=== PATIENT | male | born 1935 | race Caucasian/White ===

== ENCOUNTER 2020-03-18 15:11 | Inpatient (IN) ==
[2020-03-18] MEDS ORDERED: ACETAMINOPHEN 325 MG TABLET PO PRN (17:39)
[2020-03-18] MEDS ORDERED: ONDANSETRON 4 MG/2 ML VIAL IV PRN (17:39)
[2020-03-18] MEDS ORDERED: SODIUM CHLORIDE 0.9% 1,000 ML IV PRN (17:44)
[2020-03-18 17:58] LABS: ABG Base Excess -6.4 MMOL/L (-2.5-2.5); ABG HCO3 19.3 MMOL/L (20-26); ABG Oxygen Saturation 99.8 % (95-100); ABG PCO2 46.1 MM HG (35-48); ABG PH 7.264 (7.35-7.45); ABG TCO2 18.4 MMOL/L (23-27); Allen Test Positive; Pt O2 Delivery Device Ventilator
[2020-03-18] MEDS: NOREPINEPHRINE 8 MG in SODIUM CHLORIDE 0.9% 242 ML IV SCH (18:28)
[2020-03-18] MEDS: PANTOPRAZOLE 40 MG VIAL IV SCH (18:39)
[2020-03-18] MEDS: SUCRALFATE 1 GM/10 ML UDCUP NG SCH (18:43)
[2020-03-18] MEDS: LACTATED RINGERS 1,000 ML IV SCH (18:48)
[2020-03-18] MEDS ORDERED: METOPROLOL TARTRATE 5 MG/5 ML VIAL IV ONE (18:50)
[2020-03-18 19:10] LABS: Basophils % 0.2 % (0.0-0.8); Eosinophils % 0.1 % (0.00-10.9); Hematocrit 40.3 VOL% (42.0-52.0); Hemoglobin 13.3 GM/DL (14.0-18.0); Immature Granulocytes % 0.3 %; Immature Granulocytes Absolute 0.05 #; Lymphocytes # 1.6 10*3/uL (1.4-4.0); Lymphocytes % 10.6 % (21.2-54.2); Mean Corpuscular Volume 91.6 FL (87-102); Mean Platelet Volume 11.2 FL (9.6-12.0); Monocytes % 4.3 % (1.7-12.7); Neutrophils % 84.5 % (38.7-73.9); Platelet Count 202 T/CUMM (130-400); Red Cell Distribution Width 15.9 % (9.3-17.3); White Blood Count 15.4 T/CUMM (4-12)
[2020-03-18] MEDS: METOPROLOL TARTRATE 5 MG/5 ML VIAL IV SCH (19:16)
[2020-03-18 19:20] LABS: INR 1.1; PT Patient Result 11.6 SECS (9.8-11.9)
[2020-03-18 19:29] LABS: Albumin 2.8 G/DL (3.4-5.0); Bilirubin,Total 1.1 MG/DL (0.2-1.0); Calcium 8.3 MG/DL (8.5-10.1); Osmolality,Calculated 303.6 MOS/KG (273-304); Total Protein 6.6 G/DL (6.4-8.3)
[2020-03-19] MEDS: SUCRALFATE 1 GM/10 ML UDCUP NG SCH ×4 (00:59→18:49)
[2020-03-19] MEDS: METOPROLOL TARTRATE 5 MG/5 ML VIAL IV SCH ×5 (01:01→20:34)
[2020-03-19 03:58] LABS: Basophils % 0.3 % (0.0-0.8); Eosinophils % 0.1 % (0.00-10.9); Hematocrit 36.5 VOL% (42.0-52.0); Hemoglobin 12.3 GM/DL (14.0-18.0); Immature Granulocytes % 0.3 %; Immature Granulocytes Absolute 0.03 #; Lymphocytes # 1.8 10*3/uL (1.4-4.0); Lymphocytes % 15.7 % (21.2-54.2); Mean Corpuscular HGB Conc 33.7 GM/DL (32-36); Mean Corpuscular Volume 90.1 FL (87-102); Monocytes % 4.8 % (1.7-12.7); Neutrophils % 78.8 % (38.7-73.9); Platelet Count 176 T/CUMM (130-400); Red Blood Count 4.05 MC/CUMM (3.8-5.5); Red Cell Distribution Width 16.9 % (9.3-17.3); White Blood Count 11.7 T/CUMM (4-12)
[2020-03-19 04:04] LABS: INR 1.1; PT Patient Result 11.7 SECS (9.8-11.9)
[2020-03-19 04:19] LABS: Albumin 2.2 G/DL (3.4-5.0); Bilirubin,Total 1.1 MG/DL (0.2-1.0); Calcium 8.2 MG/DL (8.5-10.1); Osmolality,Calculated 305.7 MOS/KG (273-304); Total Protein 5.7 G/DL (6.4-8.3)
[2020-03-19] MEDS: LACTATED RINGERS 1,000 ML IV SCH (04:48)
[2020-03-19 04:52] LABS: ABG Base Excess -9.4 MMOL/L (-2.5-2.5); ABG Oxygen Saturation 97.7 % (95-100); ABG PCO2 28.8 MM HG (35-48); ABG PH 7.335 (7.35-7.45); ABG TCO2 15.9 MMOL/L (23-27); Allen Test Positive; Pt O2 Delivery Device Ventilator
[2020-03-19] MEDS ORDERED: LACTATED RINGERS 1,000 ML IV ONE ×2 (05:19→06:19)
[2020-03-19 06:54] LABS: Band Neutrophils 6 % (0-10); Lymphocytes 14 % (20-55); Segmented Neutrophils 76 % (50-85); Total Cells Counted 100
[2020-03-19 06:55] LABS: Platelet Estimate Normal; Polychromasia Slight
[2020-03-19 06:56] LABS: Microcytosis Slight
[2020-03-19] MEDS: PANTOPRAZOLE 40 MG VIAL IV SCH ×2 (07:21→18:51)
[2020-03-19] MEDS ORDERED: MAGNESIUM SULF RIDER 2 GM in PREMIX 1 EACH IV ONE (09:01)
[2020-03-19] MEDS ORDERED: SODIUM CHLORIDE 0.9% 1,000 ML IV ONE (09:45)
[2020-03-19] MEDS: SODIUM BICARB INJ 100 MEQ in DEXTROSE 5% 1,000 ML IV SCH ×2 (09:45→20:41)
[2020-03-19] MEDS: MORPHINE 4 MG/1 ML VIAL IV PRN ×2 (09:45→20:59)
[2020-03-19] MEDS ORDERED: MIDAZOLAM 2 MG/2 ML VIAL ONE (11:02)
[2020-03-19] MEDS ORDERED: MIDAZOLAM 2 MG/2 ML VIAL IV ONE (11:05)
[2020-03-19] MEDS ORDERED: VECURONIUM 10 MG VIAL IV ONE (11:07)
[2020-03-19] MEDS ORDERED: ROCURONIUM 100 MG/10 ML VIAL IV ONE (11:10)
[2020-03-19] MEDS: PIPERACILLIN/TAZOBACTAM 3,375 MG in SODIUM CHLORIDE 0.9% 100 ML IV SCH ×2 (12:35→20:34)
[2020-03-19] MEDS: ALBUTEROL/IPRATROPIUM 3 ML NEB RESP TX SCH ×3 (15:42→23:08)
[2020-03-19] MEDS ORDERED: METOPROLOL TARTRATE 5 MG/5 ML VIAL IV SCH ×2 (18:51)
[2020-03-19] MEDS: NOREPINEPHRINE 8 MG in SODIUM CHLORIDE 0.9% 242 ML IV SCH (22:32)
[2020-03-20] MEDS: SUCRALFATE 1 GM/10 ML UDCUP NG SCH ×5 (00:41→23:10)
[2020-03-20] MEDS: METOPROLOL TARTRATE 5 MG/5 ML VIAL IV SCH ×5 (01:09→23:05)
[2020-03-20] MEDS: MORPHINE 4 MG/1 ML VIAL IV PRN ×2 (02:24→15:55)
[2020-03-20] MEDS: ALBUTEROL/IPRATROPIUM 3 ML NEB RESP TX SCH ×5 (03:05→19:15)
[2020-03-20] MEDS: PIPERACILLIN/TAZOBACTAM 3,375 MG in SODIUM CHLORIDE 0.9% 100 ML IV SCH ×3 (03:46→20:17)
[2020-03-20 03:51] LABS: Basophils % 0.3 % (0.0-0.8); Eosinophils % 0.4 % (0.00-10.9); Hematocrit 27.6 VOL% (42.0-52.0); Hemoglobin 9.2 GM/DL (14.0-18.0); Immature Granulocytes % 1.5 %; Immature Granulocytes Absolute 0.17 #; Lymphocytes # 1.1 10*3/uL (1.4-4.0); Lymphocytes % 9.8 % (21.2-54.2); Mean Corpuscular HGB Conc 33.3 GM/DL (32-36); Mean Corpuscular Volume 90.5 FL (87-102); Mean Platelet Volume 11.5 FL (9.6-12.0); Monocytes % 2.7 % (1.7-12.7); Neutrophils % 85.3 % (38.7-73.9); Platelet Count 142 T/CUMM (130-400); Red Blood Count 3.05 MC/CUMM (3.8-5.5); Red Cell Distribution Width 16.9 % (9.3-17.3); White Blood Count 11.4 T/CUMM (4-12)
[2020-03-20 04:08] LABS: Albumin 1.7 G/DL (3.4-5.0); Bilirubin,Total 0.8 MG/DL (0.2-1.0); Calcium 7.9 MG/DL (8.5-10.1); Osmolality,Calculated 298.6 MOS/KG (273-304); Total Protein 4.7 G/DL (6.4-8.3)
[2020-03-20 04:11] LABS: INR 1.2; PT Patient Result 12.8 SECS (9.8-11.9)
[2020-03-20 04:22] LABS: ABG Base Excess -0.9 MMOL/L (-2.5-2.5); ABG Oxygen Saturation 95.1 % (95-100); ABG PCO2 35.1 MM HG (35-48); ABG PH 7.434 (7.35-7.45); ABG PO2 74.4 MM HG (80-95); ABG TCO2 24.1 MMOL/L (23-27); Allen Test Positive; Pt O2 Delivery Device Ventilator
[2020-03-20 04:26] LABS: Band Neutrophils 16 % (0-10); Lymphocytes 7 % (20-55); Myelocytes 3 %; Segmented Neutrophils 74 % (50-85); Total Cells Counted 100
[2020-03-20 04:27] LABS: Hypochromasia Slight; Microcytosis Slight; Platelet Estimate Adequate
[2020-03-20] MEDS: PANTOPRAZOLE 40 MG VIAL IV SCH ×2 (05:53→17:55)
[2020-03-20] MEDS ORDERED: NOREPINEPHRINE 4 MG/4 ML VIAL IV ONE (07:19)
[2020-03-20] MEDS: NOREPINEPHRINE 8 MG in SODIUM CHLORIDE 0.9% 242 ML IV SCH (07:35)
[2020-03-20] MEDS: SODIUM BICARB INJ 100 MEQ in DEXTROSE 5% 1,000 ML IV SCH ×2 (08:25→19:27)
[2020-03-20] MEDS ORDERED: LACTATED RINGERS 1,000 ML IV ONE (09:30)
[2020-03-20 16:49] LABS: Basophils # 0.1 10*3/uL (0.0-0.2); Basophils % 0.5 % (0.0-0.8); Eosinophils # 0.1 10*3/uL (0.0-0.87); Eosinophils % 0.5 % (0.00-10.9); Hematocrit 25.6 VOL% (42.0-52.0); Hemoglobin 8.6 GM/DL (14.0-18.0); Immature Granulocytes % 0.5 %; Immature Granulocytes Absolute 0.07 #; Lymphocytes % 6.6 % (21.2-54.2); Mean Corpuscular HGB Conc 33.6 GM/DL (32-36); Mean Corpuscular Volume 90.5 FL (87-102); Mean Platelet Volume 11.4 FL (9.6-12.0); Monocytes % 2.7 % (1.7-12.7); Neutrophils % 89.2 % (38.7-73.9); Platelet Count 148 T/CUMM (130-400); Red Blood Count 2.83 MC/CUMM (3.8-5.5); Red Cell Distribution Width 16.8 % (9.3-17.3); White Blood Count 15.1 T/CUMM (4-12)
[2020-03-20 17:42] LABS: Band Neutrophils 7 % (0-10); Eosinophils 1 % (0-10); Hypochromasia 1+; Lymphocytes 5 % (20-55); Metamyelocytes 2 %; Segmented Neutrophils 83 % (50-85); Total Cells Counted 100
[2020-03-20 17:43] LABS: Platelet Estimate Normal
[2020-03-20] MEDS: LEVOFLOXACIN INJ 750 MG in PREMIX 1 EACH IV SCH (22:52)
[2020-03-21] MEDS: ALBUTEROL/IPRATROPIUM 3 ML NEB RESP TX SCH ×7 (00:56→23:58)
[2020-03-21 03:45] LABS: Basophils # 0.1 10*3/uL (0.0-0.2); Basophils % 0.6 % (0.0-0.8); Eosinophils # 0.2 10*3/uL (0.0-0.87); Eosinophils % 0.9 % (0.00-10.9); Hematocrit 25.9 VOL% (42.0-52.0); Hemoglobin 8.5 GM/DL (14.0-18.0); Immature Granulocytes % 0.6 %; Lymphocytes # 1.2 10*3/uL (1.4-4.0); Lymphocytes % 7.4 % (21.2-54.2); Mean Corpuscular HGB Conc 32.8 GM/DL (32-36); Mean Corpuscular Volume 91.5 FL (87-102); Mean Platelet Volume 11.9 FL (9.6-12.0); Monocytes % 3.6 % (1.7-12.7); Neutrophils % 86.9 % (38.7-73.9); Platelet Count 159 T/CUMM (130-400); Red Blood Count 2.83 MC/CUMM (3.8-5.5); Red Cell Distribution Width 16.5 % (9.3-17.3); White Blood Count 16.5 T/CUMM (4-12)
[2020-03-21 03:52] LABS: INR 1.2; PT Patient Result 12.5 SECS (9.8-11.9)
[2020-03-21 03:58] LABS: Albumin 1.4 G/DL (3.4-5.0); Calcium 7.9 MG/DL (8.5-10.1); Osmolality,Calculated 293.7 MOS/KG (273-304); Total Protein 4.7 G/DL (6.4-8.3)
[2020-03-21 03:59] LABS: Prealbumin 5.4 MG/DL (20-40)
[2020-03-21 04:32] LABS: Band Neutrophils 8 % (0-10); Eosinophils 1 % (0-10); Hypochromasia Slight; Lymphocytes 8 % (20-55); Platelet Estimate Adequate; Segmented Neutrophils 81 % (50-85); Total Cells Counted 100
[2020-03-21] MEDS: NOREPINEPHRINE 8 MG in SODIUM CHLORIDE 0.9% 242 ML IV SCH ×2 (04:43→18:00)
[2020-03-21] MEDS: PIPERACILLIN/TAZOBACTAM 3,375 MG in SODIUM CHLORIDE 0.9% 100 ML IV SCH ×3 (04:50→19:59)
[2020-03-21 05:02] LABS: ABG Base Excess 4.3 MMOL/L (-2.5-2.5); ABG HCO3 26.8 MMOL/L (20-26); ABG Oxygen Saturation 96.8 % (95-100); ABG PCO2 32.4 MM HG (35-48); ABG PH 7.536 (7.35-7.45); ABG PO2 84.2 MM HG (80-95); ABG TCO2 27.8 MMOL/L (23-27)
[2020-03-21 05:03] LABS: Allen Test Positive; Pt O2 Delivery Device Ventilator
[2020-03-21] MEDS: METOPROLOL TARTRATE 5 MG/5 ML VIAL IV SCH ×3 (06:41→18:05)
[2020-03-21] MEDS: PANTOPRAZOLE 40 MG VIAL IV SCH ×2 (06:41→18:05)
[2020-03-21] MEDS: SUCRALFATE 1 GM/10 ML UDCUP NG SCH ×3 (06:41→18:05)
[2020-03-21] MEDS: SODIUM BICARB INJ 100 MEQ in DEXTROSE 5% 1,000 ML IV SCH ×2 (07:15→18:10)
[2020-03-21] MEDS: POTASSIUM CHLORIDE 20 MEQ/15 ML UDCUP PER TUBE SCH ×3 (12:10→18:05)
[2020-03-22] MEDS: METOPROLOL TARTRATE 5 MG/5 ML VIAL IV SCH ×4 (00:45→17:05)
[2020-03-22] MEDS: SUCRALFATE 1 GM/10 ML UDCUP NG SCH ×5 (00:50→23:30)
[2020-03-22] MEDS: ALBUTEROL/IPRATROPIUM 3 ML NEB RESP TX SCH ×6 (03:28→23:30)
[2020-03-22 04:44] LABS: Basophils % 0.3 % (0.0-0.8); Eosinophils # 0.3 10*3/uL (0.0-0.87); Eosinophils % 2.2 % (0.00-10.9); Hematocrit 23.8 VOL% (42.0-52.0); Hemoglobin 8.1 GM/DL (14.0-18.0); Immature Granulocytes % 4.2 %; Immature Granulocytes Absolute 0.58 #; Lymphocytes # 1.3 10*3/uL (1.4-4.0); Lymphocytes % 9.6 % (21.2-54.2); Mean Corpuscular Volume 89.1 FL (87-102); Mean Platelet Volume 11.2 FL (9.6-12.0); Monocytes % 5.5 % (1.7-12.7); Neutrophils % 78.2 % (38.7-73.9); Platelet Count 133 T/CUMM (130-400); Red Blood Count 2.67 MC/CUMM (3.8-5.5); Red Cell Distribution Width 15.9 % (9.3-17.3); White Blood Count 13.8 T/CUMM (4-12)
[2020-03-22 04:54] LABS: Calcium 7.3 MG/DL (8.5-10.1); Osmolality,Calculated 288.1 MOS/KG (273-304)
[2020-03-22] MEDS: PIPERACILLIN/TAZOBACTAM 3,375 MG in SODIUM CHLORIDE 0.9% 100 ML IV SCH ×3 (04:55→22:13)
[2020-03-22 04:57] LABS: ABG HCO3 30.8 MMOL/L (20-26); ABG Oxygen Saturation 96.4 % (95-100); ABG PCO2 37.4 MM HG (35-48); ABG PH 7.517 (7.35-7.45); ABG PO2 70.2 MM HG (80-95); ABG TCO2 27.7 MMOL/L (23-27); Allen Test Positive; Pt O2 Delivery Device Ventilator
[2020-03-22 05:03] LABS: Band Neutrophils 3 % (0-10); Eosinophils 2 % (0-10); Hypochromasia 1+; Lymphocytes 7 % (20-55); Platelet Estimate Normal; Segmented Neutrophils 84 % (50-85); Total Cells Counted 100
[2020-03-22] MEDS: PANTOPRAZOLE 40 MG VIAL IV SCH ×2 (05:37→17:05)
[2020-03-22] MEDS: POTASSIUM CHLORIDE RIDER 20 MEQ in PREMIX 1 EACH IV PRN (05:38)
[2020-03-22] MEDS: SODIUM BICARB INJ 100 MEQ in DEXTROSE 5% 1,000 ML IV SCH (06:17)
[2020-03-22] MEDS: POTASSIUM CHLORIDE RIDER 10 MEQ in PREMIX 1 EACH IV PRN (09:30)
[2020-03-22] MEDS: POTASSIUM CHLORIDE 20 MEQ/15 ML UDCUP PER TUBE SCH ×5 (10:49→22:35)
[2020-03-22] MEDS: INSULIN REGULAR 100 UNIT/ML SUBCUT SCH ×3 (13:04→23:29)
[2020-03-22] MEDS: NOREPINEPHRINE 8 MG in SODIUM CHLORIDE 0.9% 242 ML IV SCH (17:07)
[2020-03-22] MEDS ORDERED: SODIUM CHLORIDE 0.9% 100 ML IV ONE (22:11)
[2020-03-22] MEDS: LEVOFLOXACIN INJ 750 MG in PREMIX 1 EACH IV SCH (22:32)
[2020-03-22] MEDS: MORPHINE 4 MG/1 ML VIAL IV PRN (23:41)
[2020-03-23] MEDS: METOPROLOL TARTRATE 5 MG/5 ML VIAL IV SCH ×4 (01:01→18:17)
[2020-03-23] MEDS: ALBUTEROL/IPRATROPIUM 3 ML NEB RESP TX SCH ×6 (03:05→23:22)
[2020-03-23 04:49] LABS: ABG Base Excess 4.2 MMOL/L (-2.5-2.5); ABG HCO3 28.2 MMOL/L (20-26); ABG Oxygen Saturation 99.1 % (95-100); ABG PCO2 36.6 MM HG (35-48); ABG PH 7.487 (7.35-7.45); ABG TCO2 25.3 MMOL/L (23-27); Allen Test Positive; Pt O2 Delivery Device Ventilator
[2020-03-23 04:54] LABS: Basophils % 0.2 % (0.0-0.8); Eosinophils # 0.5 10*3/uL (0.0-0.87); Eosinophils % 3.7 % (0.00-10.9); Hematocrit 23.9 VOL% (42.0-52.0); Hemoglobin 7.9 GM/DL (14.0-18.0); Immature Granulocytes % 2.2 %; Immature Granulocytes Absolute 0.32 #; Lymphocytes # 1.1 10*3/uL (1.4-4.0); Lymphocytes % 7.7 % (21.2-54.2); Mean Corpuscular HGB Conc 33.1 GM/DL (32-36); Mean Corpuscular Volume 91.2 FL (87-102); Mean Platelet Volume 11.4 FL (9.6-12.0); Monocytes % 8.9 % (1.7-12.7); Neutrophils % 77.3 % (38.7-73.9); Platelet Count 155 T/CUMM (130-400); Red Blood Count 2.62 MC/CUMM (3.8-5.5); Red Cell Distribution Width 15.7 % (9.3-17.3); White Blood Count 14.8 T/CUMM (4-12)
[2020-03-23 05:14] LABS: Band Neutrophils 2 % (0-10); Eosinophils 5 % (0-10); Lymphocytes 6 % (20-55); Segmented Neutrophils 83 % (50-85); Total Cells Counted 100
[2020-03-23 05:15] LABS: Hypochromasia 1+; Microcytosis Slight; Platelet Estimate Adequate
[2020-03-23 05:26] LABS: Calcium 7.7 MG/DL (8.5-10.1); Osmolality,Calculated 289.8 MOS/KG (273-304)
[2020-03-23] MEDS: SUCRALFATE 1 GM/10 ML UDCUP NG SCH ×3 (06:15→18:16)
[2020-03-23] MEDS: PIPERACILLIN/TAZOBACTAM 3,375 MG in SODIUM CHLORIDE 0.9% 100 ML IV SCH ×3 (06:15→20:53)
[2020-03-23] MEDS: INSULIN REGULAR 100 UNIT/ML SUBCUT SCH ×3 (06:15→18:19)
[2020-03-23] MEDS: PANTOPRAZOLE 40 MG VIAL IV SCH ×2 (06:16→18:17)
[2020-03-23] MEDS: methylPREDNISolone SOD SUC 40 MG/1 ML VIAL IV SCH ×2 (08:45→15:29)
[2020-03-23] MEDS ORDERED: MAGNESIUM SULF RIDER 2 GM in PREMIX 1 EACH IV ONE (08:48)
[2020-03-23] MEDS: POTASSIUM CHLORIDE 20 MEQ/15 ML UDCUP PER TUBE SCH ×3 (09:00→18:16)
[2020-03-23] MEDS: POTASSIUM CHLORIDE RIDER 20 MEQ in PREMIX 1 EACH IV PRN (10:04)
[2020-03-23] MEDS: POTASSIUM CHLORIDE RIDER 10 MEQ in PREMIX 1 EACH IV PRN (11:46)
[2020-03-23] MEDS: NOREPINEPHRINE 8 MG in SODIUM CHLORIDE 0.9% 242 ML IV SCH (19:08)
[2020-03-23] MEDS: MORPHINE 4 MG/1 ML VIAL IV PRN (20:20)
[2020-03-24] MEDS: INSULIN REGULAR 100 UNIT/ML SUBCUT SCH ×5 (00:27→23:56)
[2020-03-24] MEDS: methylPREDNISolone SOD SUC 40 MG/1 ML VIAL IV SCH ×4 (00:27→23:57)
[2020-03-24] MEDS: SUCRALFATE 1 GM/10 ML UDCUP NG SCH ×5 (00:27→23:57)
[2020-03-24] MEDS: METOPROLOL TARTRATE 5 MG/5 ML VIAL IV SCH ×5 (01:00→23:57)
[2020-03-24] MEDS: ALBUTEROL/IPRATROPIUM 3 ML NEB RESP TX SCH ×6 (03:06→23:20)
[2020-03-24 04:03] LABS: Allen Test Positive; Pt O2 Delivery Device Ventilator
[2020-03-24 04:04] LABS: ABG Base Excess -0.3 MMOL/L (-2.5-2.5); ABG HCO3 24.1 MMOL/L (20-26); ABG Oxygen Saturation 91.6 % (95-100); ABG PCO2 37.9 MM HG (35-48); ABG PH 7.411 (7.35-7.45); ABG PO2 59.6 MM HG (80-95); ABG TCO2 22.2 MMOL/L (23-27)
[2020-03-24] MEDS: PIPERACILLIN/TAZOBACTAM 3,375 MG in SODIUM CHLORIDE 0.9% 100 ML IV SCH ×3 (04:20→20:30)
[2020-03-24] MEDS: MORPHINE 4 MG/1 ML VIAL IV PRN ×2 (04:35→23:00)
[2020-03-24 05:21] LABS: Basophils % 0.1 % (0.0-0.8); Immature Granulocytes % 1.9 %; Immature Granulocytes Absolute 0.24 #; Lymphocytes # 0.7 10*3/uL (1.4-4.0); Lymphocytes % 5.7 % (21.2-54.2); Mean Corpuscular HGB Conc 32.1 GM/DL (32-36); Mean Corpuscular Volume 95.7 FL (87-102); Mean Platelet Volume 12.1 FL (9.6-12.0); Monocytes % 4.1 % (1.7-12.7); NRBC # 0.02 10*3/uL; Neutrophils % 88.2 % (38.7-73.9); Platelet Count 153 T/CUMM (130-400); Red Blood Count 1.63 MC/CUMM (3.8-5.5); Red Cell Distribution Width 15.9 % (9.3-17.3); White Blood Count 12.5 T/CUMM (4-12)
[2020-03-24 05:23] LABS: Hematocrit 15.6 VOL% (42.0-52.0)
[2020-03-24] MEDS ORDERED: SODIUM CHLORIDE 0.9% 1,000 ML IV PRN (05:30)
[2020-03-24 05:34] LABS: Calcium 7.9 MG/DL (8.5-10.1); Osmolality,Calculated 297.8 MOS/KG (273-304)
[2020-03-24 05:49] LABS: Band Neutrophils 3 % (0-10); Lymphocytes 7 % (20-55); Segmented Neutrophils 85 % (50-85); Total Cells Counted 100
[2020-03-24 05:50] LABS: Ovalocytes 1+; Platelet Estimate Adequate
[2020-03-24 05:51] LABS: Acanthocytes Few
[2020-03-24] MEDS: PANTOPRAZOLE 40 MG VIAL IV SCH ×2 (06:02→17:57)
[2020-03-24] MEDS: NOREPINEPHRINE 8 MG in SODIUM CHLORIDE 0.9% 242 ML IV SCH (17:58)
[2020-03-24 20:00] LABS: Hematocrit 36.8 VOL% (42.0-52.0); Hemoglobin 12.1 GM/DL (14.0-18.0)
[2020-03-24] MEDS: LEVOFLOXACIN INJ 750 MG in PREMIX 1 EACH IV SCH (20:49)
[2020-03-25] MEDS: ALBUTEROL/IPRATROPIUM 3 ML NEB RESP TX SCH ×6 (03:14→23:13)
[2020-03-25 03:55] LABS: ABG Base Excess 0.4 MMOL/L (-2.5-2.5); ABG HCO3 24.8 MMOL/L (20-26); ABG Oxygen Saturation 98.1 % (95-100); ABG PCO2 39.5 MM HG (35-48); ABG PH 7.409 (7.35-7.45); ABG PO2 97.1 MM HG (80-95); ABG TCO2 22.7 MMOL/L (23-27); Allen Test Positive; Pt O2 Delivery Device Ventilator
[2020-03-25 04:52] LABS: Basophils # 0.1 10*3/uL (0.0-0.2); Basophils % 0.2 % (0.0-0.8); Hematocrit 32.7 VOL% (42.0-52.0); Immature Granulocytes % 2.4 %; Immature Granulocytes Absolute 0.52 #; Lymphocytes % 4.6 % (21.2-54.2); Mean Corpuscular HGB Conc 33.6 GM/DL (32-36); Mean Corpuscular Volume 88.6 FL (87-102); Mean Platelet Volume 11.6 FL (9.6-12.0); Monocytes % 4.2 % (1.7-12.7); NRBC # 0.03 10*3/uL; Neutrophils % 88.6 % (38.7-73.9); Platelet Count 236 T/CUMM (130-400); Red Blood Count 3.69 MC/CUMM (3.8-5.5); Red Cell Distribution Width 15.7 % (9.3-17.3); White Blood Count 21.5 T/CUMM (4-12)
[2020-03-25 05:29] LABS: Band Neutrophils 2 % (0-10); Lymphocytes 3 % (20-55); Osmolality,Calculated 301.7 MOS/KG (273-304); Segmented Neutrophils 93 % (50-85); Total Cells Counted 100
[2020-03-25 05:30] LABS: Microcytosis 1+; Polychromasia Slight
[2020-03-25] MEDS: PIPERACILLIN/TAZOBACTAM 3,375 MG in SODIUM CHLORIDE 0.9% 100 ML IV SCH ×3 (06:00→20:20)
[2020-03-25] MEDS: SUCRALFATE 1 GM/10 ML UDCUP NG SCH ×4 (06:37→23:56)
[2020-03-25] MEDS: PANTOPRAZOLE 40 MG VIAL IV SCH ×2 (06:37→17:58)
[2020-03-25] MEDS: INSULIN REGULAR 100 UNIT/ML SUBCUT SCH ×3 (06:37→17:58)
[2020-03-25] MEDS: methylPREDNISolone SOD SUC 40 MG/1 ML VIAL IV SCH ×3 (06:38→23:57)
[2020-03-25] MEDS: METOPROLOL TARTRATE 5 MG/5 ML VIAL IV SCH ×4 (06:38→23:57)
[2020-03-25] MEDS: fentaNYL INJ 1,250 MCG in SODIUM CHLORIDE 0.9% 225 ML IV PRN (15:07)
[2020-03-25] MEDS: NOREPINEPHRINE 8 MG in SODIUM CHLORIDE 0.9% 242 ML IV SCH (17:32)
[2020-03-25] MEDS: METOCLOPRAMIDE 10 MG/2 ML VIAL IV SCH ×2 (18:02→23:56)
[2020-03-26] MEDS: INSULIN REGULAR 100 UNIT/ML SUBCUT SCH ×4 (00:18→17:11)
[2020-03-26] MEDS: ALBUTEROL/IPRATROPIUM 3 ML NEB RESP TX SCH ×6 (02:28→23:24)
[2020-03-26 03:02] LABS: ABG Base Excess -0.4 MMOL/L (-2.5-2.5); ABG HCO3 23.7 MMOL/L (20-26); ABG Oxygen Saturation 95.9 % (95-100); ABG PCO2 36.9 MM HG (35-48); ABG PH 7.426 (7.35-7.45); ABG PO2 80.2 MM HG (80-95); ABG TCO2 24.9 MMOL/L (23-27)
[2020-03-26 03:03] LABS: Allen Test Positive; Pt O2 Delivery Device Ventilator
[2020-03-26 03:55] LABS: Basophils # 0.1 10*3/uL (0.0-0.2); Basophils % 0.2 % (0.0-0.8); Hematocrit 37.2 VOL% (42.0-52.0); Hemoglobin 11.8 GM/DL (14.0-18.0); Immature Granulocytes % 2.5 %; Immature Granulocytes Absolute 0.58 #; Lymphocytes # 1.1 10*3/uL (1.4-4.0); Lymphocytes % 4.8 % (21.2-54.2); Mean Corpuscular HGB Conc 31.7 GM/DL (32-36); Mean Corpuscular Volume 93.5 FL (87-102); Mean Platelet Volume 10.7 FL (9.6-12.0); Monocytes % 4.4 % (1.7-12.7); NRBC # 0.02 10*3/uL; Neutrophils % 88.1 % (38.7-73.9); Platelet Count 293 T/CUMM (130-400); Red Blood Count 3.98 MC/CUMM (3.8-5.5); Red Cell Distribution Width 16.4 % (9.3-17.3)
[2020-03-26 04:07] LABS: Osmolality,Calculated 301.7 MOS/KG (273-304)
[2020-03-26] MEDS: PIPERACILLIN/TAZOBACTAM 3,375 MG in SODIUM CHLORIDE 0.9% 100 ML IV SCH ×2 (04:15→11:48)
[2020-03-26] MEDS: METOPROLOL TARTRATE 5 MG/5 ML VIAL IV SCH ×4 (06:30→23:55)
[2020-03-26] MEDS: fentaNYL INJ 1,250 MCG in SODIUM CHLORIDE 0.9% 225 ML IV PRN (06:40)
[2020-03-26 06:41] LABS: Band Neutrophils 1 % (0-10); Lymphocytes 5 % (20-55); Segmented Neutrophils 90 % (50-85); Total Cells Counted 100
[2020-03-26 06:44] LABS: Hypochromasia 1+; Platelet Estimate Normal
[2020-03-26] MEDS: SUCRALFATE 1 GM/10 ML UDCUP NG SCH ×4 (07:03→23:56)
[2020-03-26] MEDS: PANTOPRAZOLE 40 MG VIAL IV SCH ×2 (07:04→17:11)
[2020-03-26] MEDS: METOCLOPRAMIDE 10 MG/2 ML VIAL IV SCH ×4 (07:05→23:55)
[2020-03-26] MEDS: methylPREDNISolone SOD SUC 40 MG/1 ML VIAL IV SCH ×3 (07:30→23:55)
[2020-03-26] MEDS: cefTRIAXone 1,000 MG in SYRINGE 1 EACH IV SCH (17:26)
[2020-03-26] MEDS: NOREPINEPHRINE 8 MG in SODIUM CHLORIDE 0.9% 242 ML IV SCH (17:26)
[2020-03-26] MEDS: LEVOFLOXACIN INJ 750 MG in PREMIX 1 EACH IV SCH (21:46)
[2020-03-27] MEDS: INSULIN REGULAR 100 UNIT/ML SUBCUT SCH ×4 (00:02→18:02)
[2020-03-27] MEDS: ALBUTEROL/IPRATROPIUM 3 ML NEB RESP TX SCH ×6 (03:40→23:37)
[2020-03-27 03:44] LABS: Calcium 8.2 MG/DL (8.5-10.1); Osmolality,Calculated 302.6 MOS/KG (273-304)
[2020-03-27 04:33] LABS: Allen Test Positive; Pt O2 Delivery Device Ventilator
[2020-03-27 04:35] LABS: ABG HCO3 24.3 MMOL/L (20-26); ABG Oxygen Saturation 98.1 % (95-100); ABG PCO2 38.2 MM HG (35-48); ABG PH 7.421 (7.35-7.45); ABG PO2 108.6 MM HG (80-95); ABG TCO2 25.5 MMOL/L (23-27)
[2020-03-27] MEDS: METOPROLOL TARTRATE 5 MG/5 ML VIAL IV SCH ×3 (05:01→17:55)
[2020-03-27] MEDS: METOCLOPRAMIDE 10 MG/2 ML VIAL IV SCH ×3 (05:01→17:48)
[2020-03-27] MEDS: SUCRALFATE 1 GM/10 ML UDCUP NG SCH ×3 (05:01→17:51)
[2020-03-27] MEDS: PANTOPRAZOLE 40 MG VIAL IV SCH ×2 (05:02→17:48)
[2020-03-27] MEDS: methylPREDNISolone SOD SUC 40 MG/1 ML VIAL IV SCH ×2 (08:13→15:21)
[2020-03-27] MEDS ORDERED: POLYETHYLENE GLYCOL POWDER 17 GM PACK PO PRN (10:42)
[2020-03-27] MEDS: NOREPINEPHRINE 8 MG in SODIUM CHLORIDE 0.9% 242 ML IV SCH (17:19)
[2020-03-27] MEDS: cefTRIAXone 1,000 MG in SYRINGE 1 EACH IV SCH (17:52)
[2020-03-27] MEDS: fentaNYL INJ 1,250 MCG in SODIUM CHLORIDE 0.9% 225 ML IV PRN (20:00)
[2020-03-28] MEDS: SUCRALFATE 1 GM/10 ML UDCUP NG SCH ×4 (00:13→17:32)
[2020-03-28] MEDS: methylPREDNISolone SOD SUC 40 MG/1 ML VIAL IV SCH ×3 (00:13→15:50)
[2020-03-28] MEDS: INSULIN REGULAR 100 UNIT/ML SUBCUT SCH ×4 (00:14→17:28)
[2020-03-28] MEDS: METOCLOPRAMIDE 10 MG/2 ML VIAL IV SCH ×2 (00:14→05:47)
[2020-03-28] MEDS: METOPROLOL TARTRATE 5 MG/5 ML VIAL IV SCH ×4 (00:14→17:33)
[2020-03-28] MEDS: ALBUTEROL/IPRATROPIUM 3 ML NEB RESP TX SCH ×6 (02:40→23:15)
[2020-03-28 04:46] LABS: Basophils % 0.2 % (0.0-0.8); Hematocrit 33.8 VOL% (42.0-52.0); Hemoglobin 11.1 GM/DL (14.0-18.0); Immature Granulocytes % 1.9 %; Immature Granulocytes Absolute 0.45 #; Lymphocytes # 0.5 10*3/uL (1.4-4.0); Lymphocytes % 2.1 % (21.2-54.2); Mean Corpuscular HGB Conc 32.8 GM/DL (32-36); Mean Corpuscular Volume 92.6 FL (87-102); Mean Platelet Volume 10.9 FL (9.6-12.0); Monocytes % 3.4 % (1.7-12.7); Neutrophils % 92.4 % (38.7-73.9); Platelet Count 375 T/CUMM (130-400); Red Blood Count 3.65 MC/CUMM (3.8-5.5); White Blood Count 23.4 T/CUMM (4-12)
[2020-03-28 04:56] LABS: ABG HCO3 24.4 MMOL/L (20-26); ABG PCO2 34.6 MM HG (35-48); ABG PH 7.466 (7.35-7.45); ABG TCO2 25.5 MMOL/L (23-27); Allen Test Positive; Pt O2 Delivery Device Ventilator
[2020-03-28 05:03] LABS: Calcium 7.7 MG/DL (8.5-10.1); Osmolality,Calculated 300.8 MOS/KG (273-304)
[2020-03-28] MEDS: PANTOPRAZOLE 40 MG VIAL IV SCH ×2 (05:43→17:32)
[2020-03-28 05:45] LABS: Lymphocytes 4 % (20-55); Segmented Neutrophils 94 % (50-85); Total Cells Counted 100
[2020-03-28 05:46] LABS: Hypochromasia 1+; Platelet Estimate Adequate
[2020-03-28 09:27] LABS: ABG Base Excess 1.6 MMOL/L (-2.5-2.5); ABG HCO3 25.9 MMOL/L (20-26); ABG Oxygen Saturation 98.4 % (95-100); ABG PH 7.464 (7.35-7.45); ABG TCO2 22.4 MMOL/L (23-27)
[2020-03-28] MEDS: cefTRIAXone 1,000 MG in SYRINGE 1 EACH IV SCH (17:33)
[2020-03-29] MEDS: SUCRALFATE 1 GM/10 ML UDCUP NG SCH ×4 (00:15→17:35)
[2020-03-29] MEDS: methylPREDNISolone SOD SUC 40 MG/1 ML VIAL IV SCH ×3 (00:15→15:00)
[2020-03-29] MEDS: METOPROLOL TARTRATE 5 MG/5 ML VIAL IV SCH ×4 (00:15→17:35)
[2020-03-29] MEDS: NOREPINEPHRINE 8 MG in SODIUM CHLORIDE 0.9% 242 ML IV SCH ×2 (00:16→17:15)
[2020-03-29] MEDS: INSULIN REGULAR 100 UNIT/ML SUBCUT SCH ×4 (01:01→17:35)
[2020-03-29] MEDS: ALBUTEROL/IPRATROPIUM 3 ML NEB RESP TX SCH ×5 (03:08→20:02)
[2020-03-29 04:19] LABS: Basophils % 0.2 % (0.0-0.8); Hematocrit 35.6 VOL% (42.0-52.0); Hemoglobin 11.5 GM/DL (14.0-18.0); Immature Granulocytes % 1.6 %; Immature Granulocytes Absolute 0.36 #; Lymphocytes # 0.6 10*3/uL (1.4-4.0); Lymphocytes % 2.5 % (21.2-54.2); Mean Corpuscular HGB Conc 32.3 GM/DL (32-36); Mean Corpuscular Volume 92.2 FL (87-102); Mean Platelet Volume 10.7 FL (9.6-12.0); Monocytes % 3.3 % (1.7-12.7); Neutrophils % 92.4 % (38.7-73.9); Platelet Count 424 T/CUMM (130-400); Red Blood Count 3.86 MC/CUMM (3.8-5.5); Red Cell Distribution Width 15.4 % (9.3-17.3); White Blood Count 22.4 T/CUMM (4-12)
[2020-03-29 04:34] LABS: ABG Base Excess 0.6 MMOL/L (-2.5-2.5); ABG Oxygen Saturation 99.5 % (95-100); ABG PCO2 34.2 MM HG (35-48); ABG PH 7.454 (7.35-7.45); ABG TCO2 21.1 MMOL/L (23-27); Allen Test Positive; Pt O2 Delivery Device Ventilator
[2020-03-29 04:36] LABS: Calcium 7.9 MG/DL (8.5-10.1); Osmolality,Calculated 302.8 MOS/KG (273-304)
[2020-03-29 04:52] LABS: Hypochromasia Slight; Lymphocytes 3 % (20-55); Platelet Estimate Adequate; Segmented Neutrophils 95 % (50-85); Total Cells Counted 100
[2020-03-29] MEDS: PANTOPRAZOLE 40 MG VIAL IV SCH ×2 (06:06→17:54)
[2020-03-29] MEDS ORDERED: FUROSEMIDE 40 MG/4 ML VIAL IV ONE (09:00)
[2020-03-29] MEDS: cefTRIAXone 1,000 MG in SYRINGE 1 EACH IV SCH (17:35)
[2020-03-29] MEDS: DONEPEZIL 5 MG TABLET PO SCH (21:21)
[2020-03-30] MEDS: ALBUTEROL/IPRATROPIUM 3 ML NEB RESP TX SCH ×6 (00:02→19:40)
[2020-03-30] MEDS: methylPREDNISolone SOD SUC 40 MG/1 ML VIAL IV SCH ×3 (00:15→17:56)
[2020-03-30] MEDS: METOPROLOL TARTRATE 5 MG/5 ML VIAL IV SCH ×4 (00:30→18:20)
[2020-03-30] MEDS: SUCRALFATE 1 GM/10 ML UDCUP NG SCH ×4 (01:05→18:30)
[2020-03-30] MEDS: INSULIN REGULAR 100 UNIT/ML SUBCUT SCH ×4 (01:05→18:30)
[2020-03-30 05:20] LABS: Basophils % 0.1 % (0.0-0.8); Hematocrit 36.7 VOL% (42.0-52.0); Hemoglobin 12.2 GM/DL (14.0-18.0); Immature Granulocytes % 1.6 %; Immature Granulocytes Absolute 0.45 #; Lymphocytes # 0.3 10*3/uL (1.4-4.0); Lymphocytes % 1.2 % (21.2-54.2); Mean Corpuscular HGB Conc 33.2 GM/DL (32-36); Mean Corpuscular Volume 90.2 FL (87-102); Mean Platelet Volume 10.9 FL (9.6-12.0); Neutrophils % 94.1 % (38.7-73.9); Platelet Count 515 T/CUMM (130-400); Red Blood Count 4.07 MC/CUMM (3.8-5.5); Red Cell Distribution Width 14.8 % (9.3-17.3); White Blood Count 27.3 T/CUMM (4-12)
[2020-03-30 05:39] LABS: Calcium 7.9 MG/DL (8.5-10.1); Osmolality,Calculated 300.3 MOS/KG (273-304)
[2020-03-30 05:41] LABS: Hypochromasia 1+; Lymphocytes 2 % (20-55); Platelet Estimate Adequate; Segmented Neutrophils 95 % (50-85); Total Cells Counted 100
[2020-03-30 05:43] LABS: Prealbumin 38.4 MG/DL (20-40)
[2020-03-30] MEDS: PANTOPRAZOLE 40 MG VIAL IV SCH ×2 (06:24→18:24)
[2020-03-30] MEDS ORDERED: LORazepam 2 MG/1 ML VIAL IV PRN (14:37)
[2020-03-30] MEDS ORDERED: METOCLOPRAMIDE 10 MG/2 ML VIAL IV ONE (15:28)
[2020-03-30] MEDS: NOREPINEPHRINE 8 MG in SODIUM CHLORIDE 0.9% 242 ML IV SCH (18:06)
[2020-03-30] MEDS: cefTRIAXone 1,000 MG in SYRINGE 1 EACH IV SCH (18:30)
[2020-03-30] MEDS: DONEPEZIL 5 MG TABLET PO SCH (21:06)
[2020-03-31] MEDS: ALBUTEROL/IPRATROPIUM 3 ML NEB RESP TX SCH ×7 (00:17→23:40)
[2020-03-31] MEDS: methylPREDNISolone SOD SUC 40 MG/1 ML VIAL IV SCH ×4 (00:25→23:44)
[2020-03-31] MEDS: METOPROLOL TARTRATE 5 MG/5 ML VIAL IV SCH ×5 (00:30→23:41)
[2020-03-31] MEDS: SUCRALFATE 1 GM/10 ML UDCUP NG SCH ×5 (00:30→23:41)
[2020-03-31] MEDS: INSULIN REGULAR 100 UNIT/ML SUBCUT SCH ×5 (00:30→19:00)
[2020-03-31] MEDS: PANTOPRAZOLE 40 MG VIAL IV SCH ×2 (06:30→17:43)
[2020-03-31] MEDS: MORPHINE 4 MG/1 ML VIAL IV PRN (09:25)
[2020-03-31] MEDS: DONEPEZIL 5 MG TABLET PO SCH (20:31)
[2020-04-01] MEDS: INSULIN REGULAR 100 UNIT/ML SUBCUT SCH ×4 (00:13→18:27)
[2020-04-01] MEDS: ALBUTEROL/IPRATROPIUM 3 ML NEB RESP TX SCH ×6 (03:22→23:25)
[2020-04-01] MEDS: PANTOPRAZOLE 40 MG VIAL IV SCH ×2 (05:24→17:47)
[2020-04-01] MEDS: METOPROLOL TARTRATE 5 MG/5 ML VIAL IV SCH ×4 (05:27→23:32)
[2020-04-01 05:28] LABS: Basophils % 0.1 % (0.0-0.8); Hematocrit 37.4 VOL% (42.0-52.0); Hemoglobin 11.8 GM/DL (14.0-18.0); Immature Granulocytes % 1.3 %; Immature Granulocytes Absolute 0.34 #; Lymphocytes # 0.4 10*3/uL (1.4-4.0); Lymphocytes % 1.6 % (21.2-54.2); Mean Corpuscular HGB Conc 31.6 GM/DL (32-36); Mean Corpuscular Volume 94.7 FL (87-102); Mean Platelet Volume 11.1 FL (9.6-12.0); Monocytes % 4.7 % (1.7-12.7); Neutrophils % 92.3 % (38.7-73.9); Platelet Count 469 T/CUMM (130-400); Red Blood Count 3.95 MC/CUMM (3.8-5.5); White Blood Count 25.3 T/CUMM (4-12)
[2020-04-01] MEDS: SUCRALFATE 1 GM/10 ML UDCUP NG SCH ×4 (05:31→23:32)
[2020-04-01] MEDS: methylPREDNISolone SOD SUC 40 MG/1 ML VIAL IV SCH ×3 (08:30→23:35)
[2020-04-01] MEDS: MORPHINE 4 MG/1 ML VIAL IV PRN ×3 (09:17→23:01)
[2020-04-01 11:18] LABS: Lymphocytes 3 % (20-55); Segmented Neutrophils 92 % (50-85); Total Cells Counted 100
[2020-04-01 11:19] LABS: Polychromasia Slight
[2020-04-01 11:20] LABS: Hypochromasia 1+; Ovalocytes Slight; Platelet Estimate Increased
[2020-04-01] MEDS ORDERED: cefTRIAXone 1,000 MG in SYRINGE 1 EACH IV SCH (12:00)
[2020-04-01] MEDS: DONEPEZIL 5 MG TABLET PO SCH (20:58)
[2020-04-01 23:44] LABS: Hematocrit 34.9 VOL% (42.0-52.0); Hemoglobin 11.1 GM/DL (14.0-18.0)
[2020-04-02] MEDS: INSULIN REGULAR 100 UNIT/ML SUBCUT SCH ×3 (00:56→11:28)
[2020-04-02] MEDS: ALBUTEROL/IPRATROPIUM 3 ML NEB RESP TX SCH ×5 (02:50→18:38)
[2020-04-02] MEDS: PANTOPRAZOLE 40 MG VIAL IV SCH (05:28)
[2020-04-02] MEDS: SUCRALFATE 1 GM/10 ML UDCUP NG SCH ×2 (05:28→14:13)
[2020-04-02] MEDS: METOPROLOL TARTRATE 5 MG/5 ML VIAL IV SCH ×3 (05:30→17:26)
[2020-04-02 05:33] LABS: Basophils # 0.1 10*3/uL (0.0-0.2); Basophils % 0.1 % (0.0-0.8); Hematocrit 37.7 VOL% (42.0-52.0); Hemoglobin 12.1 GM/DL (14.0-18.0); Immature Granulocytes % 1.4 %; Immature Granulocytes Absolute 0.48 #; Lymphocytes # 0.6 10*3/uL (1.4-4.0); Lymphocytes % 1.9 % (21.2-54.2); Mean Corpuscular HGB Conc 32.1 GM/DL (32-36); Mean Corpuscular Volume 93.1 FL (87-102); Mean Platelet Volume 11.7 FL (9.6-12.0); Monocytes % 5.2 % (1.7-12.7); Neutrophils % 91.4 % (38.7-73.9); Platelet Count 514 T/CUMM (130-400); Red Blood Count 4.05 MC/CUMM (3.8-5.5); White Blood Count 33.4 T/CUMM (4-12)
[2020-04-02 08:41] LABS: Anisocytosis Slight; Hypochromasia 2+; Lymphocytes 2 % (20-55); Macrocytosis Slight; Platelet Estimate Increased; Segmented Neutrophils 94 % (50-85); Total Cells Counted 100
[2020-04-02] MEDS: methylPREDNISolone SOD SUC 40 MG/1 ML VIAL IV SCH ×2 (08:50→16:52)
[2020-04-02] MEDS: LORazepam 2 MG/1 ML VIAL IV PRN ×2 (16:25→22:11)
[2020-04-02] MEDS: MORPHINE 4 MG/1 ML VIAL IV PRN ×2 (16:25→22:13)
[2020-04-03] MEDS: METOPROLOL TARTRATE 5 MG/5 ML VIAL IV SCH ×4 (00:52→18:55)
[2020-04-03] MEDS: LORazepam 2 MG/1 ML VIAL IV PRN ×2 (04:28→09:05)
[2020-04-03] MEDS: MORPHINE 4 MG/1 ML VIAL IV PRN ×7 (04:30→22:31)
[2020-04-04] MEDS: METOPROLOL TARTRATE 5 MG/5 ML VIAL IV SCH ×3 (00:23→13:08)
[2020-04-04] MEDS: LORazepam 2 MG/1 ML VIAL IV PRN ×9 (00:55→23:16)
[2020-04-04] MEDS: MORPHINE 4 MG/1 ML VIAL IV PRN ×9 (00:57→23:15)
[2020-04-04] MEDS ORDERED: fentaNYL 25 MCG/HR PATCH TRANSDERM SCH (17:30)
[2020-04-05] MEDS: LORazepam 2 MG/1 ML VIAL IV PRN ×8 (01:21→22:20)
[2020-04-05] MEDS: MORPHINE 4 MG/1 ML VIAL IV PRN ×10 (01:21→22:20)
[2020-04-05 07:51] VITALS: BP 117/78
== END 2020-04-06 00:28 | disposition expired | DRG 870 ==
LOC: SUATTDRO 17:17 → N.ICU 17:17 → N.TELEN 03-31 02:33 → N.4E 04-05 12:07
PROVIDERS: ADMIT Family Medicine; ATTEND Hospitalist